=== PATIENT | female | born 1990 | race Caucasian/White ===

== ENCOUNTER 2019-12-17 01:57 | Emergency (ER) | payer BC ==
[2019-12-17] MEDS ORDERED: NA CHLORIDE 0.9% 1,000 ML ONE (02:29)
[2019-12-17] MEDS ORDERED: CEFTRIAXONE/SWI 1gm 1 GM/10 ML SYR ONE (02:29)
[2019-12-17 03:04] LABS: Absolute Lymphocytes (CBC) 2.7 K/uL (0.7-4.9); Basophils % 0.7 % (0-1.3); Hematocrit 36.5 % (36.0-45.0)
[2019-12-17 03:18] LABS: ALT/SGPT 15 U/L (12-78); AST/SGOT 15 U/L (15-37); Albumin 3.9 g/dL (3.4-5.0); Alkaline Phosphatase 79 U/L (45-117); BUN Blood Urea Nitrogen 13 mg/dL (7-18); Bicarbonate 27 mmol/L (21-32); Bilirubin Total 0.2 mg/dL (0.2-1.0); Glucose Level 105 mg/dL (74-106); Potassium 3.4 mmol/L (3.5-5.1); Protein, Total 7.9 g/dL (6.4-8.2); Sodium Level 140 mmol/L (136-145)
[2019-12-17 03:19] LABS: C-Reactive Protein < 2.90 mg/L (<3.00)
[2019-12-17] MEDS ORDERED: IPRATROPIUM BROM 0.5MG/2.5ML ONE (03:54)
[2019-12-17] MEDS ORDERED: LEVALBUTEROL 1.25 MG/3 ML NEB ONE (03:54)
[2019-12-17] MEDS ORDERED: AZITHROMYCIN 250 MG TAB ONE (04:43)
--- NOTE | 2019-12-17 05:09 | ER ---
Nurse's Notes [facility] Name: Sandi Evans Age: 29 yrs Sex: Female : 1990 Arrival Date: 12/17/2019 Time: 01:58 Bed 15 Private MD: Diagnosis: Anxiety disorder, unspecified;Cough;Chest pain on breathing Presentation: 12/16 02:17 Chief complaint: Patient states: i have cough, shortness of breath, vomiting for 8 days mg2 now. i brought my son to [place] that time for ear infection and the dr who saw him was really sick. my family has been sick for few weeks now and some of them are recovering now. [place] weeks [place] and my grandmother was diagnosed with flu that time but i did not have close contact with her. i also flew to [place] but i dont have close contact to people with conti. Coronavirus screen: The patient has NOT traveled to a country currently being monitored by the CDC within the last 14 days. Ebola Screen: No symptoms or risks identified at this time. Initial Sepsis Screen: Does the patient have a suspected source of infection?. Risk Assessment: Do you want to hurt yourself or someone else? Patient reports no desire to harm self or others. 02:17 Method Of Arrival: Ambulatory mg2 02:17 Acuity: PARKER 3 mg2 02:59 Initial Sepsis Screen: Does the patient meet any 2 criteria? No. Patient's initial mg2 sepsis screen is negative. 02:59 Onset of symptoms was November 2019. mg2 Triage Assessment: 02:59 General: Appears in no apparent distress. comfortable, Behavior is calm, cooperative. mg2 Respiratory: Onset: The symptoms/episode began/occurred gradually, the patient has mild shortness of breath. 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 - Social history:: Smoking status: Patient denies any tobacco usage or history of. Patient/guardian denies using alcohol, street drugs, IV drugs. - Family history:: not pertinent. Screenin:57 Abuse screen: Denies threats or abuse. Denies injuries from another. Nutritional mg2 screening: No deficits noted. Tuberculosis screening: No symptoms or risk factors identified. Fall Risk IV access (20 points). Assessment: 02:56 General: Appears in no apparent distress. comfortable, Behavior is calm, cooperative. mg2 Pain: Complains of pain in chest Quality of pain is described as tightness. Neuro: Level of Consciousness is awake, alert, obeys commands, Oriented to person, place, time, situation. Cardiovascular: Rhythm is regular. Respiratory: Airway is patent Respiratory effort is even, unlabored, Respiratory pattern is regular, symmetrical, Breath sounds are clear bilaterally. GI: Reports nausea, vomiting. : No signs and/or symptoms were reported regarding the genitourinary system. EENT: Reports sore throat. Derm: Skin is intact, is healthy with good turgor. Musculoskeletal: Circulation, motion, and sensation intact. Capillary refill < 3 seconds. 04:05 Reassessment: Patient appears in no apparent distress at this time. Patient and/or mg2 family updated on plan of care and expected duration. Pain level reassessed. Patient is alert, oriented x 3, equal unlabored respirations, skin warm/dry/pink. Vital Signs: 02:17 BP 107 / 82; Pulse 97; Resp 18; Temp 98.2(TE); Pulse Ox 100% on R/A; Weight 56.7 kg; mg2 Height 5 ft. 3 in. (160.02 cm); 04:18 BP 107 / 78; Pulse 86; Resp 18; Pulse Ox 100% on R/A; mg2 05:34 BP 110 / 78; Pulse 89; Resp 18; Temp 98.2; Pulse Ox 100% on R/A; mg2 02:17 Body Mass Index 22.14 (56.70 kg, 160.02 cm) mg2 ED Course: 01:58 Patient arrived in ED. cl3 01:59 Kimo Perez MD is Attending Physician. geraldo 02:16 Alfredito Martinez, RUSLAN is Primary Nurse. mg2 02:22 Triage completed. mg2 02:22 Arm band placed on. mg2 02:35 First set of blood cultures drawn. Inserted saline lock: 20 gauge in right antecubital mg2 area, using aseptic technique. Blood collected. 02:50 Second set of blood cultures drawn. mg2 02:51 Chest Pa And Lat (2 Views) XRAY In Process Unspecified. EDMS 02:57 No provider procedures requiring assistance completed. mg2 03:00 Patient has correct armband on for positive identification. Call light in reach. Side mg2 rails up X 1. Pulse ox on. NIBP on. Door closed. Warm blanket given. 04:45 CT Chest For PE Angio In Process Unspecified. EDMS 05:35 IV discontinued, intact, bleeding controlled, No redness/swelling at site. Pressure mg2 dressing applied. Administered Medications: 02:55 Drug: NS 0.9% 1000 ml Route: IV; Rate: 1 bolus; Site: right antecubital; mg2 02:55 Drug: Rocephin 1 grams Route: IV; Rate: per protocol; Site: right antecubital; mg2 03:45 Drug: Xopenex 1.25 mg Route: Inhalation; mg2 04:46 Follow up: Response: No adverse reaction; Marked relief of symptoms mg2 03:45 Drug: AtroVENT Aerosol 0.5 mg Route: Inhalation; mg2 04:46 Follow up: Response: No adverse reaction; Marked relief of symptoms mg2 04:45 Drug: Zithromax 500 mg Route: PO; mg2 04:46 Follow up: Response: No adverse reaction mg2 05:30 Drug: Zofran (Ondansetron) 4 mg Route: PO; mg2 05:35 Follow up: Response: No adverse reaction; Medication administered at discharge. mg2 05:36 Not Given (Physician Discretion): Aspirin 81 mg PO once mg2 Outcome: 05:08 Discharge ordered by . geraldo 05:38 Discharged to home ambulatory. mg2 05:38 Condition: stable 05:38 Discharge instructions given to patient, Instructed on discharge instructions, follow up and referral plans. medication usage, Demonstrated understanding of instructions, follow-up care, medications, Prescriptions given X 2. 05:42 Patient left the ED. mg2 Signatures: Dispatcher [employer] Kimo Leo MD MD cha Gardose, Michele, RN RN mg2 Clay Hou cl3
--- NOTE | 2019-12-17 05:09 | EDPHYS ---
Physician Documentation [facility] Name: Sandi Evans Age: 29 yrs Sex: Female : 1990 Arrival Date: 12/17/2019 Time: 01:58 Bed 15 Private MD: GAMAL Physician Kmio Perez HPI: 12/16 02:19 This 29 yrs old Female presents to ER via Unassigned with complaints of geraldo Shortness Of Breath, Fever, Cough. 02:19 The patient has shortness of breath at rest, with light activity. Onset: The geraldo symptoms/episode began/occurred 7 day(s) ago. Duration: The symptoms are continuous, and are steadily getting worse. The patient's shortness of breath is aggravated by coughing, prone position, talking, is alleviated by rest. Associated signs and symptoms: Pertinent positives: productive cough, fever. Severity of symptoms: At their worst the symptoms were mild in the emergency department the symptoms are unchanged. The patient has not experienced similar symptoms in the past. 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 - Social history:: Smoking status: Patient denies any tobacco usage or history of. Patient/guardian denies using alcohol, street drugs, IV drugs. - Family history:: not pertinent. ROS: 02:19 Constitutional: Negative for fever, chills, and weight loss, Eyes: Negative for injury, geraldo pain, redness, and discharge, ENT: Negative for injury, pain, and discharge, Neck: Negative for injury, pain, and swelling, Cardiovascular: Negative for chest pain, palpitations, and edema, Abdomen/GI: Negative for abdominal pain, nausea, vomiting, diarrhea, and constipation, Back: Negative for injury and pain, : Negative for injury, bleeding, discharge, and swelling, MS/Extremity: Negative for injury and deformity, Skin: Negative for injury, rash, and discoloration, Neuro: Negative for headache, weakness, numbness, tingling, and seizure, Psych: Negative for depression, anxiety, suicide ideation, homicidal ideation, and hallucinations, Allergy/Immunology: Negative for hives, rash, and allergies, Endocrine: Negative for neck swelling, polydipsia, polyuria, polyphagia, and marked weight changes, Hematologic/Lymphatic: Negative for swollen nodes, abnormal bleeding, and unusual bruising. 02:19 Respiratory: Positive for cough, shortness of breath, on exertion. Exam: 02:19 Constitutional: This is a well developed, well nourished patient who is awake, alert, geraldo and in no acute distress. Head/Face: Normocephalic, atraumatic. Eyes: Pupils equal round and reactive to light, extra-ocular motions intact. Lids and lashes normal. Conjunctiva and sclera are non-icteric and not injected. Cornea within normal limits. Periorbital areas with no swelling, redness, or edema. ENT: Nares patent. No nasal discharge, no septal abnormalities noted. Tympanic membranes are normal and external auditory canals are clear. Oropharynx with no redness, swelling, or masses, exudates, or evidence of obstruction, uvula midline. Mucous membranes moist. Neck: Trachea midline, no thyromegaly or masses palpated, and no cervical lymphadenopathy. Supple, full range of motion without nuchal rigidity, or vertebral point tenderness. No Meningismus. Chest/axilla: Normal chest wall appearance and motion. Nontender with no deformity. No lesions are appreciated. Cardiovascular: Regular rate and rhythm with a normal S1 and S2. No gallops, murmurs, or rubs. Normal PMI, no JVD. No pulse deficits. Respiratory: Lungs have equal breath sounds bilaterally, clear to auscultation and percussion. No rales, rhonchi or wheezes noted. No increased work of breathing, no retractions or nasal flaring. Back: No spinal tenderness. No costovertebral tenderness. Full range of motion. Skin: Warm, dry with normal turgor. Normal color with no rashes, no lesions, and no evidence of cellulitis. MS/ Extremity: Pulses equal, no cyanosis. Neurovascular intact. Full, normal range of motion. Neuro: Awake and alert, GCS 15, oriented to person, place, time, and situation. Cranial nerves II-XII grossly intact. Motor strength 5/5 in all extremities. Sensory grossly intact. Cerebellar exam normal. Normal gait. Psych: Awake, alert, with orientation to person, place and time. Behavior, mood, and affect are within normal limits. 02:19 Abdomen/GI: Inspection: abdomen appears normal, Bowel sounds: normal, Palpation: abdomen is soft and non-tender, Liver: no appreciated palpable abnormalities, Hernia: not appreciated. 04:40 Musculoskeletal/extremity: Extremities: all appear grossly normal, with no appreciated geraldo pain with palpation, ROM: no acute changes, Circulation is intact in all extremities. Sensation intact. Compartment Syndrome exam of affected extremity: is normal. DVT Exam: No signs of deep vein thrombosis. no pain, no swelling, no tenderness, negative Homans' sign noted on exam, no appreciated bluish discoloration, no erythema, no increased warmth. Vital Signs: 02:17 BP 107 / 82; Pulse 97; Resp 18; Temp 98.2(TE); Pulse Ox 100% on R/A; Weight 56.7 kg; mg2 Height 5 ft. 3 in. (160.02 cm); 04:18 BP 107 / 78; Pulse 86; Resp 18; Pulse Ox 100% on R/A; mg2 05:34 BP 110 / 78; Pulse 89; Resp 18; Temp 98.2; Pulse Ox 100% on R/A; mg2 02:17 Body Mass Index 22.14 (56.70 kg, 160.02 cm) mg2 MDM: 02:02 Patient medically screened. [facility] 02:25 Data reviewed: vital signs, nurses notes, lab test result(s), EKG, radiologic studies, geraldo plain films. 12/16 02:18 Order name: CBC with Diff; Complete Time: 03:25 [facility] 12/16 02:18 Order name: Comprehensive Metabolic Panel; Complete Time: 03:25 [facility] 12/16 02:18 Order name: CRP; Complete Time: 03:25 [facility] 12/16 02:18 Order name: Influenza Screen (a \T\ B); Complete Time: 03:25 [facility] 12/16 02:18 Order name: Strep; Complete Time: 03:25 [facility] 12/16 02:18 Order name: Blood Culture Adult (2) [facility] 12/16 02:18 Order name: Chest Pa And Lat (2 Views) XRAY 12/16 02:18 Order name: D-Dimer; Complete Time: 03:25 [facility] 12/16 02:44 Order name: TSH; Complete Time: 03:47 [facility] 12/16 03:22 Order name: Throat Culture EDMO 12/16 03:24 Order name: Troponin (emerg Dept Use Only); Complete Time: 04:23 [facility] 12/16 03:24 Order name: CT Chest For PE Angio [facility] 12/16 02:25 Order name: EKG; Complete Time: 02:26 [facility] 12/16 02:25 Order name: EKG - Nurse/Tech; Complete Time: 02:55 [facility] 12/16 02:44 Order name: Urine Dipstick-Ancillary (obtain specimen); Complete Time: 03:22 [facility] 12/16 02:44 Order name: Urine Test (obtain specimen); Complete Time: 03:22 [facility] 12/16 03:27 Order name: PO challenge: juice; Complete Time: 03:46 [facility] Administered Medications: 02:55 Drug: NS 0.9% 1000 ml Route: IV; Rate: 1 bolus; Site: right antecubital; mg2 02:55 Drug: Rocephin 1 grams Route: IV; Rate: per protocol; Site: right antecubital; mg2 03:45 Drug: Xopenex 1.25 mg Route: Inhalation; mg2 04:46 Follow up: Response: No adverse reaction; Marked relief of symptoms mg2 03:45 Drug: AtroVENT Aerosol 0.5 mg Route: Inhalation; mg2 04:46 Follow up: Response: No adverse reaction; Marked relief of symptoms mg2 04:45 Drug: Zithromax 500 mg Route: PO; mg2 04:46 Follow up: Response: No adverse reaction mg2 05:30 Drug: Zofran (Ondansetron) 4 mg Route: PO; mg2 05:35 Follow up: Response: No adverse reaction; Medication administered at discharge. mg2 05:36 Not Given (Physician Discretion): Aspirin 81 mg PO once mg2 Disposition: 12/17/19 05:08 Discharged to Home. Impression: Anxiety disorder, unspecified, Cough, Chest pain on breathing. - Condition is Stable. - Discharge Instructions: Acute Bronchitis, Adult, Cool Mist Vaporizer, Acute Bronchitis, [id number], Cough, Adult, [id number], Aspirin and Your Heart, Cough, Adult. - Prescriptions for Benadryl 25 mg Oral Capsule - take 1 capsule by ORAL route every 6 hours As needed; 30 tablet. Zithromax 500 mg Oral Tablet - take 1 tablet by ORAL route once daily for 4 days; 4 tablet. - Medication Reconciliation Form, Thank You Letter, Antibiotic Education, Prescription Opioid Use form. - Follow up: Private Physician; When: 2 - 3 days; Reason: Recheck today's complaints, Continuance of care, Re-evaluation by your physician. - Problem is new. - Symptoms have improved. Signatures: Dispatcher [employer] EDMO Kimo Perez MD MD cha Gardose, Michele RN RN mg2 Corrections: (The following items were deleted from the chart) 05:42 05:08 12/17/2019 05:08 Discharged to Home. Impression: Anxiety disorder, unspecified; mg2 Cough; Chest pain on breathing. Condition is Stable. Discharge Instructions: Acute Bronchitis, Adult, Cool Mist Vaporizer, Acute Bronchitis, [id number], Cough, Adult, [id number], Cough, Adult. Prescriptions for Benadryl 25 mg Oral Capsule - take 1 capsule by ORAL route every 6 hours As needed; 30 tablet, Zithromax 500 mg Oral Tablet - take 1 tablet by ORAL route once daily for 4 days; 4 tablet. and Forms are Medication Reconciliation Form, Thank You Letter, Antibiotic Education, Prescription Opioid Use. Follow up: Private Physician; When: 2 - 3 days; Reason: Recheck today's complaints, Continuance of care, Re-evaluation by your physician. Problem is new. Symptoms have improved. geraldo
[2019-12-17] MEDS ORDERED: ASPIRIN EC 81 MG TAB PO ONE (05:15)
[2019-12-17] MEDS ORDERED: ONDANSETRON 4 MG (ODT) TAB ONE (05:27)
[2019-12-17 06:01] VITALS: TEMP 98.2; O2SAT 100
[2019-12-17 06:11] VITALS: BP 110/78
--- NOTE | 2019-12-17 08:34 | RAD REPORT ---
EXAM DESCRIPTION: RAD - Chest Pa And Lat (2 Views) - 12/17/2019 2:51 am CLINICAL HISTORY: COUGH Chest pain. COMPARISON: Chest For Pe Angio dated 12/17/2019 FINDINGS: The lungs are clear. The heart is normal in size. No displaced fractures. IMPRESSION: No acute or concerning finding suspected.
--- NOTE | 2019-12-17 08:41 | EKG ---
Test Date: 2019-12-17 Test Time: 03:11:05 Forensic Anthropologist: MEASUREMENT RESULTS: Intervals: Rate: 63 NM: 144 QRSD: 74 QT: 382 QTc: 390 [place]: P: 67 NM: 144 QRS: 59 T: -43 INTERPRETIVE STATEMENTS: Normal sinus rhythm T wave abnormality, non specific Abnormal ECG No previous ECG available for comparison Electronically Signed On 12-17-19 08:41:15 CDT by Demar Belle
--- NOTE | 2019-12-17 11:59 | RAD REPORT ---
EXAM DESCRIPTION: CT chest angiography with intravenous contrast CLINICAL HISTORY: 29-year-old female with dyspnea. TECHNIQUE: Following the administration of intravenous contrast, multiple high-resolution axial imag es of the chest were performed followed by sagittal and coronal reconstructed images. MIP images were not performed. The CT study is performed according to ALARA (as low as reasonably achievable) or ALA RA/IMAGE GENTLY, with automatic adjustment of mA and/or kV according to patient size. Performed on: 12/17/2019 at 4:34 AM COMPARISON: None FINDINGS: There is satisfactory visualization and contrast opacification of pulmonary arteries. No definite intra-arterial filling defects are identified to suggest acute or chronic pulmonary embolis m. There is some motion artifact on the images resulting in slight degradation of image quality. The thoracic aorta is normal in caliber and contour without evidence of aneurysm or dissection. The lungs are well expanded and are clear. There is no evidence of a pneumothorax. There are no pleur al effusions. The heart is normal in size. There is no pericardial effusion. There is no evidence of hilar, mediastinal or axillary lymphadenopathy. No acute osseous abnormality is identified. The visualized upper abdominal structures are unremarkable. IMPRESSION: 1. No CT evidence to suggest acute or chronic pulmonary embolism, aortic aneurysm or aor tic dissection. There is some motion artifact on the images resulting in slight degradation of image quality. 2. No evidence of acute intrathoracic disease. Electronically signed by: Seda Canela DO 12/17/2019 4:57 AM CDT Due to temporary technical issues with the PACS/Fluency reporting system, reports are being signed by the in house radiologist as a courtesy to ensure prompt reporting. The interpreting radiologist is f ully responsible for the content of the report.
== END 2019-12-17 05:42 | disposition home or self-care (01) ==
LOC: ER 01:57
DX: F41.9 Anxiety disorder, unspecified (principal); R07.1 Chest pain on breathing; E06.3 Autoimmune thyroiditis
CPT/HCPCS: 93005; 87040 ×2; 87070; 85025; 36415; 85379; 87081; 84443; 84484; 80053; 86140; 87804 ×2; 71275; 71046; 96374; 99284; Q9967; J0696; J7030